=== PATIENT | female | born 1955 | race Caucasian/White ===

== ENCOUNTER 2016-05-09 05:23 | Inpatient (IN) | payer BC, OTHER ==
[2016-05-04 10:52] LABS: HEMATOCRIT 35.8 % (37.0-47.0); HEMOGLOBIN 11.9 gm/dL (12.0-15.0); MCH 27.1 pg (26.0-34.0); MCHC 33.1 % (28.0-37.0); MCV 81.9 fL (80.0-100.0); RBC 4.38 mil/uL (4.20-5.00); RDW 14.3 % (10.5-14.5); WBC 10.3 thou/uL (4.0-11.0)
[2016-05-04 10:57] LABS: CALCIUM 8.8 mg/dL (8.5-10.1); CREATININE 0.8 mg/dL (0.6-1.3); POTASSIUM 3.7 mmol/L (3.5-5.1)
[2016-05-04 10:58] LABS: URINE BILIRUBIN NEGATIVE (Negative); URINE BLOOD TRACE (Negative); URINE COLOR YELLOW; URINE GLUCOSE-RANDOM* NEGATIVE (Negative); URINE KETONES NEGATIVE (Negative); URINE LEUKOCYTES-REFLEX NEGATIVE (Negative); URINE PROTEIN (DIPSTICK) 1+ (Negative); URINE SPECIFIC GRAVITY >= 1.030 (1.003-1.035); URINE UROBILINOGEN 0.2 E.U./dl (0.2-1.0)
[2016-05-04 11:38] LABS: SQUAMOUS >10 Many /LPF (0-3)
[2016-05-04 11:39] LABS: CASTS None Seen /LPF (None Seen); CRYSTALS None Seen /LPF (None Seen)
[2016-05-04 11:40] LABS: URINE RBC None Seen /HPF (0-2); URINE WBC-REFLEX 0-5 Rare /HPF (0-5)
[~2016-05-09] VITALS: Ht 162.6 cm; Wt 121.1 kg
--- NOTE | ~2016-05-09 | O ---
[facility] [place] [address] OPERATIVE REPORT Name: FRANKO MCCABE Room #: 462-P [facility] IN M.R.#: [id number] Admission: 05/11/16 Attend Phys: William Go MD Discharge: 05/15/16 Date of : 53 Report #: [id number] THIS REPORT FOR: //name// CC: William BRIGHT DATE OF SERVICE: 05/11/2016 PREOPERATIVE DIAGNOSES: 1. Lumbar stenosis. 2. Lumbar spondylosis. 3. L4-L5 spondylolisthesis. POSTOPERATIVE DIAGNOSES: 1. Lumbar spondylosis. 2. Lumbar stenosis. 3. L4-L5 spondylolisthesis. 4. L3-L4 synovial cyst. PROCEDURES PERFORMED: 1. L3-L4 laminectomy for resection of synovial cyst. 2. Right-sided L4-L5 transforaminal lumbar interbody fusion. 3. Placement of biomechanical intervertebral device at L4-L5. 4. Bilateral L4-L5 pedicle screw and rhonda fixation. 5. Intraoperative neurophysiologic monitoring. 6. Use of operating microscope to provide illumination and magnification for microdissection. 7. Use of fluoroscopy for intraoperative localization. HISTORY: The patient is a pleasant 60-year-old female with multiple pain complaints; however, the patient has had persistent back and bilateral lower extremity complaints. The patient has previously undergone hemilaminotomy for resection of synovial cyst at L4-L5. The patient demonstrated worsening stenosis at L4-L5 for primarily right-sided facet arthropathy with ligamentous hypertrophy as well as ossification of the medial facet complex and possible synovial cyst. She has a left-sided spondylolysis at the same level. At L3-L4, the patient also has moderate stenosis secondary to facet arthropathy, ligamentous hypertrophy, and calcification of the facet complex medially. The patient was counseled in the outpatient setting, having failed conservative therapy. At this point in time, the nature and persistence of her complaints, negative impact of these complaints on her daily life, and in correlation with available imaging studies, I recommended the patient to pursue a surgical option. The goals of surgery, as well as risks and benefits were reviewed with the patient in outpatient clinical setting and is adequately documented on the outpatient chart. The patient and her family have acknowledged the understanding of this discussion, and they wished to proceed with surgery. [address] [address] OPERATIVE REPORT Name: FRANKO MCCABE Room #: 462-P [facility] IN .R.#: [id number] Admission: 05/11/16 Attend Phys: William Go MD Discharge: 05/15/16 Date of : 53 Report #: [id number] Consent was signed and placed on the chart. DESCRIPTION OF PROCEDURE: The patient was taken to the operating room by anesthesia, having IVs placed preoperatively. She underwent successful placement of an endotracheal tube for general endotracheal anesthesia. Antibiotics were given per protocol. Benson catheter was placed. The patient was then gently rotated from supine to prone position on top of the radiolucent [place] table in standard spine configuration. Her arms were gently rotated to be positioned above her head with care taken to maintain her elbows and shoulders at less than 90 degrees of flexion. All pressure points were checked and found to be adequately padded. Neurophysiologic monitoring was initiated with somatosensory evoked potentials and free running EMGs. Baselines were established. The patient's back was then cleaned, prepped, and draped in the usual sterile fashion. C-arm fluoroscopic unit was draped in the field sterilely to assist with intraoperative localization. An external skin marker was used to identify the spinal midline and 2 parallel incisions were drawn from the top of the L4 pedicle above the L5 pedicle. These incisions were marked 3.5 cm lateral to the midline. The right incision was expanded rostrally approximately 1 cm. Both incisions were then infiltrated with 10 mL of 1% lidocaine with epinephrine. The skin itself was incised with #10 blade down to the thoracolumbar fascia. The thoracolumbar fascia was incised with the same blade. Next, safety wires were placed in bilateral pedicles of L4 and L5 using Jamshidi needles under AP and lateral fluoroscopic guidance. Having satisfactorily placed the K wires in position, they were bent out of field. Next, a small dilator from Medtronic METRx retractor tray was passed through the wound and fascial opening on the right side and docked on the right lamina of L3. Over this, K-wire was passed and serial dilators from Medtronic METRx retractor tray. When the wound was successfully dilated to 22 mm, a 22 mm x 8 cm METRx retractor was passed over the dilators and secured to the table with articulating arm. The dilators were removed. The position and adequacy of the retractor was verified with lateral C-arm fluoroscopy. Next, the muscles overlying the right L3 lamina were reduced with Bovie electrocautery. High speed pneumatic drill with deejay matchstick bur was then used to initiate laminotomy at L3-L4 on the right side. Once the ligamentum flavum was identified, the laminotomy was expanded with various-sized Kerrison punches. High speed pneumatic drill with deejay matchstick bur with small Kerrison punch was then used to perform medial facetectomy. Using microscope to provide illumination and magnification for microdissection, small nerve hooks were used to dissect the ligamentum flavum from the lateral edge of the thecal sac. There was dense adherence with scarring. As I dissected further, it appeared that the patient had a synovial cyst emanating from the medial right L3-L4 facet complex, which at some point in time previously had ruptured. There was degenerative disk material as well as densely adherent scarring of the neural elements at this location. This was meticulously dissected free. At the completion of dissection, it did appear that the thecal sac in particularly L3-L4 nerve roots were free of any undue compression. Next, the wound was copiously irrigated [facility] [address] [place] [address] OPERATIVE REPORT Name: FRANKO MCCABE Room #: 462-P [facility] IN M.R.#: [id number] Admission: 05/11/16 Attend Phys: William Go MD Discharge: 05/15/16 Date of : 53 Report #: [id number] with bacitracin irrigation, meticulous hemostasis obtained with bipolar electrocautery and FloSeal. Retractor tube was withdrawn on to the skin surface. In similar fashion, a 26 mm diameter x 8 cm METRx retractor was placed at L4-L5. Using microscope to provide illumination and magnification for microdissection, the muscles overlying the right L4 lamina was reduced with Bovie electrocautery. High speed pneumatic drill with deejay matchstick bur was then used to initiate laminotomy at L4-L5 on the right side. An ostial mallet was then used to disarticulate the inferior articular facet of L4. Next, a high speed pneumatic drill with deejay matchstick bur with small Kerrison punch was then used to disarticulate the superior articular facet of L5. Next, using microdissection technique, ligamentum flavum was then withdrawn from the underlying dura. However, again there was dense fibrotic scarring with calcification of ligamentum flavum and what appeared to be chronic-appearing synovial cyst material causing significant compression to the thecal sac in particularly L5 nerve root. This was dissected free using microdissection techniques. At the completion of this portion of dissection, it did appear the thecal sac in particularly L5 nerve root was free of significant compression. Next, the thecal sac and the L5 nerve root were medially deviated. A #11 blade was then used to perform annulotomy at L4-L5. Disk material was recovered from the L4-L5 disk space. The disk space was then rasped with various-sized curettes and rasps. Disk space distractor from the Medtronic Capstone instrument tray was tamped in to disk space. Disk space was easily distracted to 12 mm. Paddle kb were then also used to remove pieces of cartilaginous endplate and additional disk material. Next, the 12 mm retractor was then placed back in the L4-L5 disk space. On the left side over the previously placed safety wires, polyaxial pedicle screws from Medtronic Voyager instrument tray were placed using a 6.5 x 45 mm polyaxial pedicle screw at L5 and a 6.5 x 55 mm polyaxial pedicle screw at L4. A 40 mm prebent cobalt chrome rhonda was then passed between the screw heads, and using the reduction facet screws, the patient's spondylolisthesis was neutralized. Attention returned back to the right side where the paddle distractor was removed. Trials from the Medtronic Capstone instrument tray were tamped in to disk space and a 12 x 26 mm implant appeared to fit easily. At this point in time, given the size of the patient's disk space, I elected to place an expandable cage. The patient's own local autograft bone, which was harvested during decompression was morcellized and placed within the L4-L5 disk space. Additionally, half of the sponge from [employer] Infuse Extra Small kit was placed in the disk space. The second half of the Infuse sponge was placed in the center of a [employer] Elevate 10 x 28 mm expandable biomechanical intervertebral device, which was then tamped in the L4-L5 disk space. Next, meticulous hemostasis obtained with bipolar electrocautery and FloSeal. The wound was copiously irrigated with bacitracin irrigation. The retractor was withdrawn to the skin surface. The set screws which were temporarily tightened down the left side were tightened to their torque-limited breakoff point and the screw assemblies were removed. In similar fashion, a 6.5 x 55 mm polyaxial screw was placed at L4 on the right and 6.5 x 50 mm polyaxial screw was placed on the right at L5. Again, a 40 mm prebent [facility] [address] [place] [address] OPERATIVE REPORT Name: FRANKO MCCABE Room #: 462-P DIS IN M.R.#: [id number] Admission: 05/11/16 Attend Phys: William Go MD Discharge: 05/15/16 Date of : 53 Report #: [id number] cobalt chrome rhonda was passed between the screw heads and set screws were tightened to their torque-limited breakoff point. The screw assemblies were removed. Prior to rhonda placement, direct pedicle screw stimulation failed to identify any significant abnormal EMG activity above standard threshold values. Next, the wounds were copiously irrigated with bacitracin-containing irrigation. Meticulous hemostasis obtained with bipolar electrocautery and FloSeal. The wounds were then closed in layers using 2-0 interrupted stitches in the muscle fascial layer. A 20 mL of 0.75% Marcaine with epinephrine was injected to the paraspinous muscle to act as local anesthesia. Skin itself was then closed with inverted interrupted 2-0 Vicryl stitches and running 4-0 subcuticular Vicryl stitch. Dressings of Telfa and Tegaderm were applied. The patient was returned from the supine to prone position on recovery room bed. Benson catheter remained in place. She was awoken from anesthesia and taken to PACU in hemodynamically stable and satisfactory condition. All needle, sponge, and instrument counts were correct times 2 per nursing at the end of the case. <ELECTRONICALLY SIGNED> By: William Go MD 05/31/16 1105 1635 2301 William Go MD /nt
--- NOTE | ~2016-05-09 | H ---
[facility] [place] [address] HISTORY AND PHYSICAL Name: FRANKO MCCABE Room #: 462-P [facility] IN M.R.#: [id number] Admission: 05/11/16 Attend Phys: William Go MD Discharge: 05/15/16 Date of : 53 Report #: [id number] THIS REPORT FOR: //name// CC: William BRIGHT DICTATED BY: Krupa Gibson RN DATE OF SERVICE: 05/09/2016 DATE OF SURGERY: 05/09/2016 at [facility]. PROCEDURE: Right L3-L4 laminectomy and a right L4-L5 transforaminal lumbar interbody fusion. HISTORY OF PRESENT ILLNESS: The patient is a pleasant 60-year-old female, who has previously undergone a left-sided L4-L5 laminectomy and excision of synovial cyst, performed in February of 2014. She reports her leg pain resolved initially after surgery, but she continued to have back pain. She reports her leg pain returning about a year ago, and it feel similar to before her surgery. She reports pain from her midback to her lower back that radiates into her bilateral buttocks and posteriorly into her bilateral thighs. The patient occasionally continues down her posterior legs and to her feet. She reports constant pain and numbness that has not relieved by anything. She feels that her legs are weak and gave out on her, and she reports 3 falls in the past 6 months. She also reports bilateral leg muscle spasms that occur with prolonged walking. 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 She takes 800 mg of Motrin 3 to 4 times a day. She does do stretches every morning in the bathtub for her back, but has difficulty exercising due to pain. She wears a back brace for support, it does help with pain when walking. The patient denies any further issues at this time. She presents today to proceed with her surgical option for her lumbar spine. CURRENT MEDICATIONS: Ibuprofen 800 mg as needed, lisinopril 20 mg once a day, glyburide 5 mg two tablets once a day, metformin 1000 mg twice a day, aspirin 325 mg once a day, Zanaflex 4 mg 1-2 every 6 hours and at bedtime, hydrochlorothiazide 25 mg once a day, Coreg 3.125 mg daily, Bydureon 2 mg pen injector as directed. PAST MEDICAL HISTORY: Headaches, that are cluster, occipital; hyperlipidemia, hypertension, stroke, diabetes, shortness of breath with exertion, difficulty sleeping, cataracts, fibromyalgia, cardiac catheterization in 2012 with 20% blockage, TB. PAST SURGICAL HISTORY: Ovarian tumor removed as benign in 2009, cholecystectomy in 2004, partial hysterectomy in 1985, T and A in 1963, mole removed from left [facility] [address] [place] [address] HISTORY AND PHYSICAL Name: FRANKO MCCABE Room #: 462-P DIS IN M.R.#: [id number] Admission: 05/11/16 Attend Phys: William Go MD Discharge: 05/15/16 Date of : 53 Report #: [id number] breast in 1971, tubal ligation in 1971, L4-L5 lumbar surgery in 2013. SOCIAL HISTORY: The patient is a former smoker, quit greater than 5 years ago. The patient reports no alcohol use. The patient denies illicit drug use. She is . She is a nurse at [employer]. She has two children. Recently . ALLERGIES: MORPHINE which causes vomiting, CODEINE causes vomiting, LATEX causes skin peels, KEFLEX causes severe yeast infection. REVIEW OF SYSTEMS: GENERAL/CONSTITUTIONAL: The patient admits to fatigue. The patient denies fever, weight gain, or weight loss. EYES: The patient admits to blind spots and glasses: The patient denies double vision, pain. ALLERGY/IMMUNOLOGY: The patient denies seasonal allergies. ENT: The patient admits to ringing in the ears. The patient denies dizziness, nasal congestion, decreased hearing, difficulty swallowing, or ear pain. ENDOCRINE: The patient denies low blood sugar, hair loss, or thyroid disease. The patient admits to high blood sugars, cold intolerance, excessive thirst, heat intolerance. RESPIRATORY: The patient admits to snoring and shortness of breath with exertion. The patient denies cough, hemoptysis, shortness of breath at rest, or wheezing. CARDIOVASCULAR: The patient admits to swelling of his feet or ankles, high blood pressure, difficulty lying flat, or palpitations. The patient denies chest pain. GASTROINTESTINAL: The patient admits to constipation and diarrhea. The patient denies jaundice, abdominal pain, nausea, rectal bleeding, or vomiting. HEMATOLOGY: The patient denies DVTs, bleeding disorder, easy bruising, or swollen glands. GENITOURINARY: The patient denies blood in urine, painful urination. The patient admits to frequent urination and urgency. SKIN: The patient denies eczema, hives, itching, rash, or skin lesions. PSYCHIATRIC: The patient admits to sleep problems, depression, anxiety, and difficulty sleeping. SLEEP: The patient admits to excessive daytime sleepiness. PHYSICAL EXAMINATION: GENERAL APPEARANCE: Pleasant, well-nourished, well-developed, in no acute distress, female, obese, uncomfortable due to pain, calm and relaxed. HEAD: Normocephalic and atraumatic. EYES: Pupils are equal, round, and reactive to light and accommodation. Extraocular movements are full and smooth. Sclerae are nonicteric. ORAL CAVITY: Tongue in midline, mucosa moist, good dentition. NECK/THYROID: Trachea midline. Neck supple, full range of motion. [facility] [address] [place] [place] [address] HISTORY AND PHYSICAL Name: FRANKO MCCABE Room #: 462-P [facility] IN ..#: [id number] Admission: 05/11/16 Attend Phys: William Go MD Discharge: 05/15/16 Date of : 53 Report #: [id number] SKIN: Warm and dry, good turgor. BACK: No scoliosis, no kyphosis. MUSCULOSKELETAL: No swelling or deformity. NEUROLOGIC: Alert and oriented to person, place, and time. Cognitive exam grossly normal. Cerebellar function normal. Cranial nerves 2-12 are grossly intact. The patient's muscle tone and bulk appears normal, motor strength normal in the upper and lower extremities with the exception of mild right proximal lower extremity weakness in the iliopsoas and quadriceps muscle group. No objective signs of myelopathy appreciated. The patient mildly slow to arise from the seated position. The patient walks with an antalgic gait, favoring the right side. No rigidity, no tremor. IMAGING REVIEWED: X-rays with flexion-extension at [facility]. Impression: Anterolisthesis of L4-L5, measuring to 10 mm, which does not change with flexion or extension. Moderate facet degenerative changes present. The patient's lumbar alignment does not demonstrate spondylolisthesis, and recent MRI of lumbar spine suggesting mechanical instability at L4-L5, when the patient is standing. TREATMENT PLAN: We reviewed the patient's interval health history, as well as her current presenting complaints and their possible relationships with the available clinical and radiographic data. I recommend a CT lumbar spine without contrast to provide improved radiographic assessment of the patient's lumbar spine, as well as osseous anatomy around the right L3-L4 with neural foramen. I advised consideration of surgery with a right-sided approach for L3-L4 laminectomy, and right-sided approach for L4-L5 transforaminal lumbar interbody fusion with bilateral L4-L5 pedicle screw and rhonda fixation. Consideration will be given towards L3-L4 to recommended CT scan. The patient has significant L3-L4 foraminal stenosis which may be adequately treated with laminectomies and foraminotomy alone. The goals of surgery, as well as risks and benefits were reviewed in detail. The risk of surgery included but were not exclusively limited to bleeding, infection, risk of spinal fluid leakage, and its consequences, injury to local structures including the nerve roots, which could lead to permanent pain and/or disability, potential for hardware/implant failure, and lumbar dysfunction with the need for further surgery, risk of developing additional areas of structural instability, failure of surgical intervention with the possibility of residual or recurrent symptoms, as well as the risk of undergoing hospitalization and general anesthesia. The patient had the opportunity to have her questions answered to her satisfaction. The patient has acknowledged the understanding of this discussion, as well as the proposed [address] [address] HISTORY AND PHYSICAL Name: MCCABEFRANKO Precious Room #: 462-P [facility] IN ..#: [id number] Admission: 05/11/16 Attend Phys: William Go MD Discharge: 05/15/16 Date of : 53 Report #: [id number] plan of care. The patient will follow up in the postoperative period per routine. <ELECTRONICALLY SIGNED> By: William Go MD 05/31/16 1057 0927 1123 William Go MD /nt
--- NOTE | ~2016-05-09 | EKG ---
[place] [address] [facility] [email or web address] [address] ELECTROCARDIOGRAM REPORT Name: FRANKO MCCABE Room #: PRE IN [facility]#: [id number] Admission: Attend Phys: William Go MD Discharge: Date of : 53 Report #: [id number] THIS REPORT FOR: //name// [facility] Test Date: 2016-05-04 Test Time: 10:02:14 Pat Name: FRANKO MCCABE Department: Room: Gender: F Event Planner: DANIS WILLARD : 1955 Requested By: William Go Order Number: [id number] MD: Doroteo Crouch Measurements Intervals [place] Rate: 70 P: 70 UT: 163 QRS: 84 QRSD: 100 T: 11 QT: 434 QTc: 469 Interpretive Statements Sinus rhythm Borderline right axis deviation Minimal ST depression, diffuse leads Baseline wander in lead(s) V6 No previous ECG available for comparison Electronically Signed On 05-05-2016 9:24:31 FUNDRAISING COORDINATOR by Doroteo Crouch [email or web address] <ELECTRONICALLY SIGNED> By: Doroteo Crouch MD, [facility] 05/05/16 0924 1002 1002 Doroteo Crouch MD, FACC /EPI
--- NOTE | ~2016-05-09 | S ---
[facility] [place] [address] SURGICAL PATH RPT PROCEDURE Name: FRANKO CARDONA Room #: 462-P DIS IN M.R.#: [id number] Admission: 05/11/16 Date of : 53 Discharge: 05/15/16 Report #: [id number] Path Case #: [id number] PATHOLOGY REPORT COLLECTION DATE: 05/11/2016 RECEIVED DATE: 05/12/2016 SUBMITTING PHYS: Dr. William Go MD,PhD OTHER PHYS: Dr. Wandy Strickland SPECIMEN(S) RECEIVED: A.L3-4 synovial cyst * * * * * * * * * * * * FINAL DIAGNOSIS: Bone, cartilage and soft tissue "L3-4 synovial cyst": - Fragments of bone and cartilage consistent with disc material. - Also received fragments of fibrous soft tissue with reactive changes. - A well defined cyst is not identified. (SHA:all; d/t: 05/16/2016) PATHOLOGIST: Garrett Mooney M.D. REPORT ELECTRONICALLY SIGNED BY: Garrett Mooney M.D. DATE/TIME: 05/16/2016 14:22 * * * * * * * * * * * * GROSS PATHOLOGY: Received in formalin labeled "Franko Cardona, L3-4 synovial cyst," are several pieces of glistening, fibrous tissue measuring 2.4 x 1.1 x 0.3 cm in aggregate dimensions admixed with minute fragments of bone. The tissue is submitted entirely in cassette A1, following decalcification. (CAA; 05/12/2016) CLINICAL HISTORY: Herniated disc INITIAL CPT CODE(S): A; 90258, 23863 Professional services performed by [facility] at [facility] [address], [place] [address] Technical services performed by [facility] at [address] [place] [id number]. [facility] [address] [place] [address] SURGICAL PATH RPT PROCEDURE Name: FRANKO CARDONA Room #: 462-P [facility] IN M.R.#: [id number] Admission: 05/11/16 Date of : 53 Discharge: 05/15/16 Report #: [id number] Path Case #: [id number] [facility] [address] [address] PHONE: [phone] DIRECTOR: Ramin Bowling M.D. * * * END OF REPORT * * *
[~2016-05-09 05:23] MED LIST: AMLODIPINE BESY10 MG PO; ASPIRIN325 PO; BYDUREON P2 MG/0.65 SQ; CARVEDILOL12.5 MG PO; COLACE100 MG PO; COREG3.125 MG PO; DIABETA 5MG TABL5 MG PO; GLYBURIDE PO; HYDROCHLOROTHIA25 M2 PO; IBUPROFEN 800800 M1 PO; LISINOPRIL20 MG PO; LORTAB 7.5-3251 EACH PO; METFORMIN HCL500 MG PO; NORCO 5-325 TA1 EACH PO; PRILOSEC20 MG PO; ROBAXIN 750 MG750 M1 PO; ZANAFLEX4 MG PO; ZOCOR 10 MG TAB10 MG PO
[2016-05-10] MEDS ORDERED: GLYBURIDE 5 MG T5 M1 PO (10:06)
[2016-05-11] VITALS (7 sets, daily range): BP systolic 141–160; BP diastolic 54–81
[2016-05-12 04:39] VITALS: BP 125/55
[2016-05-12 04:49] LABS: HEMATOCRIT 34.2 % (37.0-47.0); HEMOGLOBIN 11.2 gm/dL (12.0-15.0); MCH 26.8 pg (26.0-34.0); MCHC 32.6 % (28.0-37.0); RBC 4.17 mil/uL (4.20-5.00); RDW 14.7 % (10.5-14.5); WBC 13.2 thou/uL (4.0-11.0)
[2016-05-12 05:01] LABS: ALBUMIN 2.8 g/dL (3.4-5.0); CALCIUM 8.2 mg/dL (8.5-10.1); CREATININE 0.9 mg/dL (0.6-1.3); POTASSIUM 3.8 mmol/L (3.5-5.1); TOTAL BILIRUBIN 0.5 mg/dL (<0.1-1.0); TOTAL PROTEIN 6.6 g/dL (6.4-8.2)
[2016-05-12 07:36] VITALS: BP 145/59
[2016-05-12 16:18] VITALS: BP 99/66
[2016-05-12 19:17] VITALS: BP 109/43
[2016-05-13 04:47] VITALS: BP 113/55
[2016-05-13 14:45] VITALS: BP 96/49
[2016-05-13 15:27] VITALS: BP 96/58
[2016-05-13 19:51] VITALS: BP 107/52
[2016-05-14 03:57] VITALS: BP 91/55
[2016-05-14 08:08] VITALS: BP 108/55
[2016-05-14 11:55] VITALS: BP 122/48
[2016-05-14 20:27] VITALS: BP 137/56
[2016-05-15] VITALS: BP 147/73
[2016-05-15 02:57] VITALS: BP 146/64
[2016-05-15 07:58] VITALS: BP 132/67
[2016-05-15] MEDS ORDERED: LORTAB 10-3251 EACH PO (10:48)
[2016-05-15] MEDS ORDERED: NORCO 10-325 T1 EACH PO (11:16)
[2016-05-15] MEDS ORDERED: CELEBREX 200 M200 MG PO (11:16)
[2016-05-15] MEDS ORDERED: ROBAXIN 750 MG750 M1 PO (11:18)
[2016-05-15 13:16] VITALS: BP 132/67
[2016-05-15 16:41] VITALS: BP 132/67
== END 2016-05-15 17:30 | disposition home or self-care (01) | DRG 460 ==
LOC: PRE 05:23 → TBA 05:23 → PRE 08:15 → 5S 05-11 05:39 → TBA 05-11 05:39 → 5S 05-11 18:21 → 4W 05-13 15:03
PROVIDERS: Neurological Surgery
PROC: 0SG00A1 (ICD-10-PCS; principal; 2016-05-11)
PROC: 0QB00ZZ Excision of Lumbar Vertebra, Open Approach (ICD-10-PCS; 2016-05-11)
PROC: 4A1004G Monitoring of Central Nervous Electrical Activity, Intraoperative, Open Approach (ICD-10-PCS; 2016-05-11)
DX: M48.06 Spinal stenosis, lumbar region (principal); Z68.42 Body mass index [BMI] 45.0-49.9, adult; E11.9 Type 2 diabetes mellitus without complications; E78.5 Hyperlipidemia, unspecified; I10 Essential (primary) hypertension; E66.9 Obesity, unspecified; D72.829 Elevated white blood cell count, unspecified; Z88.6 Allergy status to analgesic agent; Z88.1 Allergy status to other antibiotic agents; Z79.4 Long term (current) use of insulin; Z91.040 Latex allergy status; Z87.891 Personal history of nicotine dependence; Z86.73 Personal history of transient ischemic attack (TIA), and cerebral infarction without residual deficits
CPT/HCPCS: 10047; 10785; 50010; 50101; 50402; 50455; 50515; 50522; 50743; 50746; 50747; 50771; 50782; 50850; 50860; 50923; 51048; 51751; 51779; 51878; 53210; 56526; 56532; 56651; 62110; 62900; 70005